=== PATIENT | female | born 1950 | race Caucasian/White ===

== ENCOUNTER → 2016-12-04 | Outpatient (CLI) | payer MEDICARE | END | disposition home or self-care (01) | LOC: CFH 09:44 | PROVIDERS: ATTEND Nurse Practitioner Family | DX: Z12.31 Encounter for screening mammogram for malignant neoplasm of breast (principal) | CPT/HCPCS: G0202 ==

== ENCOUNTER → 2020-06-28 | Outpatient (CLI) | payer MEDICARE ==
[~2020-06-28] MED LIST: ACET325T26 PO; ASCO100018 PO; ASPI-963 PO; ATOR-2 PO; INSU100I11 SQ-INSULIN; IRBE75TA6 PO; LISI5TAB7 PO; MAGN400T36 PO; METF1000 PO; METF500T PO; ROSU20TA2 PO; [UNRECOGNIZED DRUG - CODE] PO
== END | disposition home or self-care (01) ==
LOC: CFH 09:27
PROVIDERS: ATTEND Nurse Practitioner Family
DX: Z12.31 Encounter for screening mammogram for malignant neoplasm of breast (principal)
CPT/HCPCS: 77063; 77067

== ENCOUNTER → 2020-07-02 | Outpatient (CLI) | payer MEDICARE | END | disposition home or self-care (01) | LOC: CVU 13:54 | PROVIDERS: ATTEND Surgery | DX: I65.22 Occlusion and stenosis of left carotid artery (principal); I77.1 Stricture of artery | CPT/HCPCS: 93880 ==